=== PATIENT | female | born 1940 | race Caucasian/White ===

== ENCOUNTER 2018-10-24 09:04 | Emergency (ER) | payer MEDICARE, OTHER ==
--- NOTE | 2018-10-24 09:25 | ED Physician Documentation ---
PD HPI TRUNK INJURY - Stated complaint Stated Complaint: GLF - RIB PX - Chief complaint Chief Complaint: General - History obtained from History obtained from: Patient - History of Present Illness Location: Left chest Type of injury: Fall (she says she tripped while twirling dancing, fell to left side onto ground, with bruising and tenderness left lateral ribs. Has also developed cough, chills, hoarse voice.) Timing - onset: How many days ago (5) Timing - duration: Days (5) Timing - details: Abrupt onset, Still present Quality: No: Pain, Spasm Improved by: Rest Worsened by: Moving, Palpating, Other (deep breathing) Associated symtptoms: No: Weakness, Numbness, Swelling Contributing factors: No: Anticoagulated, Other injury Where injury occured: Home Similar symptoms before: Has not had sx before Recently seen: Not recently seen Review of Systems Constitutional: denies: Fever, Chills, Myalgias Nose: denies: Rhinorrhea / runny nose, Congestion Throat: denies: Sore throat Respiratory: denies: Cough (2) : denies: Dysuria, Frequency, Incontinent, Discharge PD PAST MEDICAL HISTORY - Past Medical History Cardiovascular: None Respiratory: None - Present Medications Home Medications: Ambulatory Orders Medication Instructions Recorded Confirmed Alendronate Sodium 35 mg PO OAW 10/24/18 10/24/18 Aspirin 81 mg PO DAILY 10/24/18 10/24/18 Azelastine HCl 137 mcg NS BID 10/24/18 10/24/18 Benzonatate [Tessalon Perle] 100 mg PO TID PRN #30 capsule 10/24/18 DULoxetine [Cymbalta] 40 mg PO DAILY 10/24/18 10/24/18 Fluticasone [Flonase] 1 sprays KAROLYN DAILY PRN 10/24/18 10/24/18 Loratadine [Claritin] 10 mg PO DAILY 10/24/18 10/24/18 Naproxen 375 mg PO BID #20 tablet 10/24/18 Sodium Chloride [Saline Nose [place]] 45 ml NS QID 10/24/18 10/24/18 Topiramate [Topamax] 2 tab PO DAILY 10/24/18 10/24/18 Tramadol HCl 50 mg PO Q6H PRN #15 tablet 07/03/19 Valacyclovir HCl [Valacyclovir] 2 tab PO BID PRN 10/24/18 10/24/18 dexAMETHasone [Decadron] 4 mg PO DAILY #5 tablet 10/24/18 - Allergies Allergies/Adverse Reactions: Allergies Allergy/AdvReac Type Severity Reaction Status Date / Time No Known Drug Allergies Allergy Verified 10/24/18 09:19 PD ED PE NORMAL - General General: Alert and oriented X 3, No acute distress, Well developed/nourished - HEENT HEENT: Atraumatic, PERRL, EOMI, Dentition benign - Neck Neck: Supple, no meningeal sign - Cardiac Cardiac: RRR, No murmur - Respiratory Respiratory: Clear bilaterally, Other (left posterolateral chest wall with ) - Abdomen Abdomen: No: Normal bowel sounds (less) - Back Back: No CVA TTP, No spinal TTP, Other (right posterolateral chest wall with tenderness, swetting) - Derm Derm: Normal color, Warm and dry - Neuro Neuro: Alert and oriented X 3, No motor deficit, No sensory deficit, Normal speech Results - Vitals Vitals: Vital Signs - 24 hr 10/24/18 10/24/18 09:16 11:11 Temperature 37.1 C Heart Rate 96 85 Respiratory 20 14 Rate Blood Pressure 171/89 H 144/83 H O2 Saturation 98 100 Oxygen O2 Source Room air - Rads (name of study) chest with ribs xray Radiology: Prelim report reviewed (left posterolateral ribs with some crepitance), EMP read contemporaneously, See rad report Departure - Departure Disposition: 01 Home, Self Care Clinical Impression: Upper respiratory infection Qualifiers: URI type: unspecified URI Qualified Code(s): J06.9 - Acute upper respiratory infection, unspecified Fall from slip, trip, or stumble Qualifiers: Encounter type: initial encounter Qualified Code(s): W01.0XXA - Fall on same level from slipping, tripping and stumbling without subsequent striking against object, initial encounter Rib fractures Qualifiers: Encounter type: initial encounter Rib fracture type: multiple ribs Fracture type: closed Laterality: left Qualified Code(s): S22.42XA - Multiple fractures of ribs, left side, initial encounter for closed fracture Condition: Stable Record reviewed to determine appropriate education?: Yes Instructions: ED Upper Resp Infec No Abx Tx, ED Fx Rib Prescriptions: Benzonatate [Tessalon Perle] 100 mg PO TID PRN #30 capsule PRN Reason: Cough dexAMETHasone [Decadron] 4 mg PO DAILY #5 tablet Naproxen 375 mg PO BID #20 tablet Tramadol HCl 50 mg PO Q6H PRN #15 tablet PRN Reason: Pain Comments: Stay well-hydrated. Use Decadron steroid daily for several days to reduce the bronchial irritation and therefore less coughing. Add Tessalon for cough suppression as needed. You can use [id number] cough medicine such as Robitussin/guaifenesin as well if needed. Use naproxen anti-inflammatory twice daily for pain of the ribs and to reduce inflammation of them. Add Tylenol or tramadol if needed for pains. This should be decrease in the pain in the area over several days as the bruising decreases. It takes about a week and a half for enough bone healing to occur that there is not rib movement anymore at the fracture site. However it takes about 4 to 6 weeks to fully heal. Progress activity as tolerated during those times and discomfort will be the main limitation on activity Discharge Date/Time: 10/24/18 11:11
[2018-10-24] MEDS ORDERED: NAPROXEN 250 MG TABLET PO STA (09:41)
[2018-10-24] MEDS ORDERED: DEXAMETHASONE 10 MG/ML VIAL PO STA (09:41)
[2018-10-24] MEDS ORDERED: CHERRY SYRUP 10 ML UDC PO ONE (09:41)
[2018-10-24] MEDS ORDERED: BENZONATATE 100 MG CAPSULE PO STA (09:41)
--- NOTE | 2018-10-24 10:29 | XRAY Report ---
Reason: fall while dancing last night Procedure Date: 10/24/2018 Accession Number: [id number] / [id number] Procedure: XR - Ribs w/PA Chest LT CPT Code: FULL RESULT: EXAM: LEFT RIB RADIOGRAPHY EXAM DATE: 10/24/2018 10:10 AM. CLINICAL HISTORY: Fall while dancing last night. COMPARISON: None. TECHNIQUE: 1 view of the chest and 2 views of the ribs. FINDINGS: Bones: Nondisplaced fracture of the left seventh and eighth ribs laterally. Lungs: No focal opacities. No pneumothorax. No pleural effusions. Mediastinum: Heart and mediastinal contours are unremarkable. Other: None. IMPRESSION: Nondisplaced fracture of the left seventh and eighth ribs laterally. RADIA
[2018-10-24 11:12] VITALS: BP 144/83
== END 2018-10-24 11:11 | disposition home or self-care (01) ==
LOC: ED 09:04
DX: S22.42XA Multiple fractures of ribs, left side, initial encounter for closed fracture (principal); W01.0XXA Fall on same level from slipping, tripping and stumbling without subsequent striking against object, initial encounter; Y93.41 Activity, dancing; J06.9 Acute upper respiratory infection, unspecified; Z79.82 Long term (current) use of aspirin
CPT/HCPCS: 71101; 99283; A9270